=== PATIENT | female | born 1990 | race African-American/Black ===

== ENCOUNTER 2021-11-12 14:09 | Emergency (ER) | payer MEDICAID ==
[~2021-11-12] VITALS: Ht 162.6 cm; Wt 104.0 kg
[2021-11-12 15:10] VITALS: BP 112/61
[2021-11-12] MEDS ORDERED: ALBU6.7H9 INH (15:22)
[2021-11-12] MEDS ORDERED: IBUP-2030 MT (15:22)
== END 2021-11-12 16:37 | disposition home or self-care (01) ==
LOC: ER 14:09
DX: M79.18 Myalgia, other site (principal); Z20.822 Contact with and (suspected) exposure to COVID-19; R05.9 Cough, unspecified
CPT/HCPCS: 99283; C9803; U0003; U0005

== ENCOUNTER 2022-03-30 22:42 | Emergency (ER) | payer MEDICAID ==
[~2022-03-30 22:42] MED LIST: ALBU6.7H9 INH; IBUP-2030 MT
== END 2022-03-31 02:15 | disposition left against medical advice (07) ==
LOC: ER 22:42
DX: Z53.21 Procedure and treatment not carried out due to patient leaving prior to being seen by health care provider (principal)